=== PATIENT | male | born 1960 | race African-American/Black ===

== ENCOUNTER 2017-02-01 22:21 | Inpatient (IN) | payer OTHER ==
[~2017-02-01] VITALS: Ht 182.9 cm; Wt 74.2 kg
--- NOTE | 2017-02-01 22:28 | NUR ---
PT BIB AMBULANCE AND PLACED IN BED. PT WITH C/O SOB X 3 DAYS, WORSENING TODAY WITH EXERTION. NO SOB OR DISTRESS NOTED AT THIS TIME. IV HEPLOCK TO LAC PRIOR TO ARRIVAL NOTED. PT STATED HAVING N/V X 4 DAYS WITH GENERALIZED WEAKNESS.
[2017-02-01 23:05] LABS: BASOPHIL % 0.6 % (0-2)
[2017-02-01 23:07] LABS: PLATELET COUNT 101 x10^3mcL (130-400); RED CELL DISTRIBUTION WIDTH 15.5 % (11.5-14.5)
[2017-02-01 23:08] LABS: CARBON DIOXIDE 25.2 mmol/L (21-32); CREATININE SERUM 1.8 mg/dL (0.7-1.3); POTASSIUM SERUM 5.2 mmol/L (3.5-5.1)
[2017-02-01 23:14] LABS: ALBUMIN 3.8 g/dL (3.4-5.0); BILIRUBIN TOTAL 3.1 mg/dL (0.20-1.00); TOTAL PROTEIN, SERUM 7.8 g/dL (6.4-8.2)
--- NOTE | 2017-02-01 23:38 | NUR ---
PT SITTING UP IN BED WATCHING TV WITH NO SIGNS OF DISTRESS NOTED AT THIS TIME.
[2017-02-02] VITALS (8 sets, daily range): BP systolic 94–120; BP diastolic 65–88; Ht 182.9 cm; Wt 74.2 kg
[2017-02-02] MEDS ORDERED: APAP500 MG PO (00:28)
[2017-02-02] MEDS ORDERED: ASPIR 8181 MG PO (00:30)
[2017-02-02] MEDS ORDERED: PROAIR RES117 MCG/Ac IH (00:30)
[2017-02-02] MEDS ORDERED: ALLOPURINOL100 MG PO (00:30)
[2017-02-02] MEDS ORDERED: CARVEDILOL3.125 M1 PO (00:31)
[2017-02-02] MEDS ORDERED: FUROSEMIDE40 MG PO (00:31)
[2017-02-02] MEDS ORDERED: DIGOXIN0.125 M1 PO (00:31)
[2017-02-02] MEDS ORDERED: ZES10 PO (00:32)
[2017-02-02] MEDS ORDERED: ISORDIL TITRADOS5 M1 PO (00:32)
[2017-02-02] MEDS ORDERED: ALDACTONE25 MG PO (00:33)
[2017-02-02] MEDS ORDERED: NITROSTAT0.4 MG SL (00:33)
[2017-02-02] MEDS ORDERED: TYLENOL WITH CO1 TA2 PO (00:34)
[2017-02-02] MEDS ORDERED: FLOMAX0.4 MG PO (00:34)
--- NOTE | 2017-02-02 01:56 | NUR ---
REPORT GIVEN TO FLOOR RN.
--- NOTE | 2017-02-02 03:03 | NUR ---
PT RECEIVED FROM ED VIA [facility], ASSISTED BY NURSE. PT AMBULATED TO BED ON OWN, STATED SOB W/ EXERTION. RECEIVING 2L NC, NO C/O CP AT THIS TIME. PT STATED HAS DIZZINESS UPON EXERTION, C/O THROBBING ABD PAIN 8/10, WILL MEDICATE PER DOCTORS ORDER. IV SITE TO LAC PATENT AND INTACT, NO C/O PAIN AT SITE. PT ORIENTED TO ROOM AND CALL LIGHT, BED IN LOWEST POSITION, CALL LIGHT WITHIN REACH, WILL CONTINUE TO MONITOR.
--- NOTE | 2017-02-02 04:30 | NUR ---
PT RECEIVED FLU SHOT IM AND NORCO PO. RESTING IN BED, WILL CONTINUE TO MONITOR. CALL LIGHT IN REACH, BED IN LOWEST POSITION.
--- NOTE | 2017-02-02 05:15 | NUR ---
PT RESTING IN BED, ADJUSTING WELL TO HOSPITAL ROOM. NO C/O CP OR PAIN AT THIS TIME, RESP EVEN AND INLABORED, NO C/O SOB. PT ON 2L NC O2 SAT 98%. CALL LIGHT WITHIN REACH, BED IN LOWEST POSITION, WILL CONTINUE TO MONITOR.
[2017-02-02 06:31] LABS: BASOPHIL % 0.6 % (0-2)
[2017-02-02 06:49] LABS: PLATELET COUNT 95 x10^3mcL (130-400)
[2017-02-02 07:09] LABS: ALBUMIN 3.6 g/dL (3.4-5.0); BILIRUBIN TOTAL 3.91 mg/dL (0.20-1.00); CALCIUM 8.9 mg/dL (8.5-10.1); CARBON DIOXIDE 23.2 mmol/L (21-32); CREATININE SERUM 1.8 mg/dL (0.7-1.3); POTASSIUM SERUM 5.2 mmol/L (3.5-5.1); TOTAL PROTEIN, SERUM 7.2 g/dL (6.4-8.2)
--- NOTE | 2017-02-02 07:55 | NUR ---
PT SEEN REST ON BED, NO COMPLAIN OF SOB AND CP AT THIS TIME. PT BREATHING ON RA, EVEN,UNLABORED. IV SITE PATENT, INTACT. SALINE LOCK AT THIS TIME.
--- NOTE | 2017-02-02 12:39 | NUR ---
GOT CALL FROM [employer], PT'S HR WENT UP 160-170 BPM. CHECK PT, PT IS SITTING AT BED SIDE, EATING, STILL COMPLAIN OF BREATHING PROBLEM, WITH O2 STAT AT 98% ON RA/ 2L VIA NC. PT'S BP 106/79, HR 85 BPM. PT STATED HE IS UNABLE TO DEEP BREATHE. NO REPORTED CHEST PAIN AT THIS TIME. PT STILL REFUSED TO TAKE DIGOXIN PER ORDER. TRIED TO CHANGE PT'S TELE MONITOR LEAD, PT INSISTED TO CHANGE IT AFTER LUNCH.
--- NOTE | 2017-02-02 14:05 | NUR ---
LEADS OFF, CHECKED ON PT. RADIO STAFF IS DOING ECHO, PT REQUEST TO PUT LEADS ON AFTER ECHO.
--- NOTE | 2017-02-02 17:38 | NUR ---
MADE DR. ORLANDO AWARE THAT PT COMPLAIN OF BREATHING PROBLEM, PT STATED BREATHING TREATMENT BARELY HELP HIM. PT WANTED TO SEE HIS DORCTOR. PER DR. ORLANDO'S TELEPHONE ORDER: CHECK PT'S DIG LEVEL AND REPEAT BNP.
--- NOTE | 2017-02-02 18:35 | NUR ---
DR. WALKER TALKED TO PT. KAYEXALATE IS ORDERED. PT BREATHING ON RA, EVEN, UNLABORED. PT IV SITE SALINE LOCK AT THIS TIME.
--- NOTE | 2017-02-02 19:30 | NUR ---
PT SITTING UP IN BED WATCHING TV. TELE #27 SHOWING SR W/ INVERTED T WAVES HR 82 EXPLAINED TO PT DIETARY CHANGES; PT UNDERSTANDS NPO AFTER MIDNIGHT TO ALLOW FOR US ABD COMPLETE. RESP EVEN AND UNLABORD, NO C/O SOB OR CP AT THIS TIME. 2L NC, PT GIVEN KAYEXALATE TO REMOVE k+, TOLERATED WELL. IV TO LAC REMAINS PATENT AND FREE OF REDNESS, SWELLING OR PAIN. CALL LIGHT WITHIN REACH, BED IN LOWEST POSITION, WILL CONTINUE TO MONITOR.
[2017-02-02 19:53] LABS: UA SPECIFIC GRAVITY 1.015 (1.005-1.035); microscopic required? YES; urine erythrocyte TRACE (NEGATIVE)
[2017-02-02 20:00] LABS: AMPHETAMINE QUAL UR NONE DETECTED (NEG <=1000)
--- NOTE | 2017-02-03 05:05 | NUR ---
PT SLEEPING IN BED, RESP EVEN AND UNLABORED. NO S/S OF RESP DISTRESS NOTED, RECIEVING OXYGEN 2L NC, IV SITE REMAINS INTACT, SALINE LOCKED. PT RESTING WELL THROUGH THE NIGHT WITH MINIMAL INTERRUPTIONS. CALL LIGHT WITHIN REACH, BED IN LOWEST POSITION, WILL CONTINUE TO MONITOR.
[2017-02-03 06:10] VITALS: BP 121/79
[2017-02-03 06:17] LABS: BASOPHIL % 0.5 % (0-2)
[2017-02-03 06:31] LABS: CALCIUM 9.1 mg/dL (8.5-10.1); CARBON DIOXIDE 25.5 mmol/L (21-32); CREATININE SERUM 1.9 mg/dL (0.7-1.3); POTASSIUM SERUM 4.6 mmol/L (3.5-5.1)
[2017-02-03 07:04] LABS: PLATELET COUNT 91 x10^3mcL (130-400); RED CELL DISTRIBUTION WIDTH 15.6 % (11.5-14.5)
--- NOTE | 2017-02-03 07:10 | NUR ---
PT SEEN AWAKE, SITTING AT THE BED SIDE. PT BREATHING ON RA, EVEN, UNLABORED. PT NO COMPLAIN OF PAIN AND SOB AT THIS TIME. PT PULLED THE IV OUT HIMSELF. CHECKED THE REMOVED IV PORT TIP INTACT. EARLY HEAD START DIRECTOR NURSE AWARE AND TRYING TO REINSERT NEW IV.
[2017-02-03 09:39] VITALS: BP 113/74
--- NOTE | 2017-02-03 10:30 | NUR ---
PAGED AND OBTAINED DR. WALKER TELEPHONE ORDER: ADD ENSURE TID TO PT CARDIAC DIET.
[2017-02-03 13:22] VITALS: BP 102/71
--- NOTE | 2017-02-03 17:50 | NUR ---
PT SITTING AT BED SIDE. PT NO COMPLAIN OF PAIN AND SOB AT THIS TIME. PT BREATHING ON RA, EVEN, UNLABORED. PT'S URINE COLOR FROM YESTERDAY EMMETT TO YELLOW TODAY. IV SITE PATENT, INTACT. IVF INFUSING WELL.
--- NOTE | 2017-02-03 17:59 | NUR ---
DR. ORELLANA CAME TO TALK TO PT AT BED SIDE.
[2017-02-03 18:00] VITALS: BP 100/71
--- NOTE | 2017-02-03 19:40 | NUR ---
PT SITTING UP IN BED WATCHING TV. IV TO LTFA, PATENT SALINE LOCK. NO REDNESS, SWELLING, OR PAIN AT SITE. NO SOB OR CP AT THIS TIME, ON RA O2 SAT REMAINS 97-98%. RESP EVEN AND UNLABORED, SYMMETRICAL RISE AND FALL OF CHEST. TELE #27 SR W/ DEPRESSED ST & TWAVE. PATIENT AWARE OF NPO STATUS AFTER MIDNIGHT FOR STRESS TEST. COMFORT AND SAFETY MEASURES PROVIDED, CALL LIGHT WITHIN REACH, BED IN LOWEST POSITION, WILL CONTINUE TO MONITOR.
[2017-02-03 21:12] VITALS: BP 112/82
[2017-02-03 23:45] VITALS: BP 105/73
--- NOTE | 2017-02-03 23:45 | NUR ---
CITY CLERK CALLED TO ALERT THAT PT WAS DEMONSTRATING V. TACH ON MONITOR. CHARGE NURSE NOTIFIED, PT HAD APPOINTMENT WITH [employer] IN AM FOR STRESS TEST, TOOK VS PROMPTLY AFTER, BP 105/79, HR 88, ASYMPTOMATIC. WILL CONTINUE TO MONITOR.
--- NOTE | 2017-02-04 03:00 | NUR ---
PATIENT'S PLAN OF CARE WAS DISCUSSED AND REVIEWED WITH MICROBIOLOGY PROFESSOR:TANESHA HERRERA.
--- NOTE | 2017-02-04 03:00 | NUR ---
I HAVE REVIEWED THE DATA COLLECTION BY GRIPPER INSTALLER (NAME):TANESHA HERRERA. ENTERED ON (DATE/TIME): I CONCUR WITH THE DATA AND ANY EXCEPTIONS OR COMMENTS ARE LISTED BELOW:
[2017-02-04 03:15] VITALS: BP 112/70
--- NOTE | 2017-02-04 05:14 | NUR ---
PT AWAKE IN BED OCCUPIED WITH ELECTRONIC DEVICE. PT STATES PAIN IS UNDER CONTROL AT THIS TIME. NO C/O CP/SOB AT THIS TIME. PT UNDERSTANDS HE IS NPPO UNTIL STRESS TEST PROCEDURE. IV SITE REMAINS PATENT TO LTFA, SALINE LOCKED. PT ANTICIPATING DISCHARGE SOON. MEDICATED X3 DURING SHIFT, PERSISTENT ABD PAIN REPORTED 11/29. NORCO X1, MORPHINE X2. PT APPEARS TO HAVE VERY HIGH TOLERANCE TO NARCOTICS, WILL CONTINUE TO MONITOR CLOSELY. RESP REMAINED EVEN AND UNLABORED. CALL LIGHT WITHIN REACH, BED IN LOWEST POSITION, WILL CONTINUE TO MONITOR.
[2017-02-04 05:22] VITALS: BP 114/81
[2017-02-04 06:57] LABS: CALCIUM 8.7 mg/dL (8.5-10.1); CARBON DIOXIDE 27.9 mmol/L (21-32); CREATININE SERUM 1.8 mg/dL (0.7-1.3); POTASSIUM SERUM 3.7 mmol/L (3.5-5.1)
--- NOTE | 2017-02-04 07:14 | NUR ---
VERBALIZED UNDERSTANDING NPO FOR STRESS TEST.
--- NOTE | 2017-02-04 07:22 | NUR ---
PATIENT ALERT AND ORIENTED X 4. TELE # 27 DENIES CHEST PAIN. NO EDEMA NOTED. SOB EXERTION NOTED WHILE TALKING. ABDOMEN SOFT, BOWEL SOUNDS ACTIVE. REPORTS RIGHT FLANK PAIN DUE TO KIDNEY STONES BUT RELIEVED WITH MORPHINE. ABLE TO MOVE ALL EXTREMITIES. SKIN INTACT. IV HEP LOCK LFA 24G WNL. VERBALIZED UNDERSTANDING AND NPO FOR STRESS TEST. CALL LIGHT WITHIN REACH.
[2017-02-04 07:50] LABS: BASOPHIL % 0.4 % (0-2)
[2017-02-04 07:55] LABS: PLATELET COUNT 87 x10^3mcL (130-400)
--- NOTE | 2017-02-04 08:02 | NUR ---
RECEIVED CALL FROM [employer], STRESS TEST IS NOT UNTIL THIS AFTERNOON, OKAY TO FEED BREAKFAST, WILL MAKE NPO AFTER DONE. OKAY TO GIVE SCHEDULED CARDIAC MEDICATIONS.
--- NOTE | 2017-02-04 08:11 | NUR ---
MEDICATED WITH NORCO FOR 8/10 RIGHT FLANK PAIN.
--- NOTE | 2017-02-04 08:35 | NUR ---
AMBULATED TO BATHROOM, NO SOB NOTED.
[2017-02-04 09:10] VITALS: BP 113/67
--- NOTE | 2017-02-04 09:18 | NUR ---
VERBALIZED UNDERSTANDING NPO.
--- NOTE | 2017-02-04 10:25 | NUR ---
PATIENT AT [facility], CALM AND SOB. AMBULATED TO RESTROOM, NO SOB UPON EXERTION.
--- NOTE | 2017-02-04 11:42 | NUR ---
SITTING BEDSIDE, NO DISTRESS NOTED.
--- NOTE | 2017-02-04 12:24 | NUR ---
DR NGUYỄN IN TO SEE PATIENT. PLAN IS TO DC HOME AFTER STRESS TEST IF NEGATIVE.
--- NOTE | 2017-02-04 12:25 | NUR ---
OFF FLOOR VIA WC FOR STRESS TEST.
[2017-02-04 12:29] VITALS: BP 113/67
--- NOTE | 2017-02-04 13:48 | NUR ---
PATIENT DECLINED CARDIOLITE STRESS/LEXISCAN -AFRAID OF HAVING A BAD REACTION
--- NOTE | 2017-02-04 13:53 | NUR ---
BACK FROM STRESS TEST. REFUSED STRESS TEST. REPORTS HE WAS SCARED TO HAVE TEST DUE TO SIDE EFFECTS. WHEN IT WAS POINTED OUT THAT HE HAD HAD THE SAME TEST A YEAR AGO, STATED HE DIDN'T KNOW ALL OF THE SIDE EFFECTS. WANTS A BREATHING TREATMENT AND A PRESCRIPTION FOR PAIN MEDICATION BEFORE DISCHARGE.
[2017-02-04 14:10] VITALS: BP 103/70
--- NOTE | 2017-02-04 14:11 | NUR ---
REPORTING THAT DR TOLD HIM HE WAS TO HAVE ANOTHER DOSE OF LASIX PRIOR TO DC. PAGED DR ORELLANA.
--- NOTE | 2017-02-04 14:15 | NUR ---
DR ORELLANA REPORTS HE DID NOT TELL PATIENT THAT HE NEEDED LASIX PRIOR TO DISCHARGE. INSTRUCTED RN TO CALL ATTENDING.
--- NOTE | 2017-02-04 14:16 | NUR ---
PAGED DR NGUYỄN.
--- NOTE | 2017-02-04 14:45 | NUR ---
SPOKE WITH DR NGUYỄN, HE STATED WANTED PATIENT TO RECEIVE LASIX LAST NIGHT AND THIS MORNING, NO NEW ORDERS. [place] HOME.
--- NOTE | 2017-02-04 15:25 | NUR ---
WANTS TO TAKE A NAP AND LEAVE AT 1800. MEDICATED WITH MORPHINE FOR 8/10 PAIN.
[2017-02-04 15:28] VITALS: BP 145/75
--- NOTE | 2017-02-04 15:33 | NUR ---
patient sitting, alert and talkative. patient reports pain 8/10. administered medication. will reassess in 30 minutes.
--- NOTE | 2017-02-04 15:52 | NUR ---
PATIENT REPORTS PAIN LEVEL 2/10 AND WILL BE TAKING A NAP.
--- NOTE | 2017-02-04 16:19 | NUR ---
WATCHING TV, LISTENING TO MUSIC, NO DISTRESS NOTED.
--- NOTE | 2017-02-04 16:36 | NUR ---
reviewed discharge instructions, patient verbalized understanding. patient received rx script in hand. obtained signatures. D/C'd IV from LFA, IV intact.
--- NOTE | 2017-02-04 16:46 | NUR ---
NOW SAYING HIS RIDE HAS FALLEN THROUGH AND HE IS WORKING ON ANOTHER RIDE.
--- NOTE | 2017-02-04 17:26 | NUR ---
UP IN CHAIR, ON PHONE, NO DISTRESS NOTED.
--- NOTE | 2017-02-04 17:43 | NUR ---
OFF FLOOR VIA WHEELCHAIR WITH [employer] APPRAISER. ALL BELONGINGS WITH PATIENT.
== END 2017-02-04 17:40 | disposition home or self-care (01) | DRG 194 ==
LOC: ED 22:21 → DU 02-02 00:32
PROVIDERS: Emergency Medicine; Internal Medicine; ADMIT Internal Medicine Pulmonary Disease
DX: I13.0 Hypertensive heart and chronic kidney disease with heart failure and stage 1 through stage 4 chronic kidney disease, or unspecified chronic kidney disease (principal); Z86.74 Personal history of sudden cardiac arrest; I50.43 Acute on chronic combined systolic (congestive) and diastolic (congestive) heart failure; N18.9 Chronic kidney disease, unspecified; I25.5 Ischemic cardiomyopathy; E87.5 Hyperkalemia; N40.0 Benign prostatic hyperplasia without lower urinary tract symptoms; F12.10 Cannabis abuse, uncomplicated; Z86.711 Personal history of pulmonary embolism; J44.9 Chronic obstructive pulmonary disease, unspecified
CPT/HCPCS: 83880; 90658; J1940; J2270; J2785; J7030; J7613; Q0092

== ENCOUNTER 2017-08-30 12:50 | Inpatient (IN) | payer OTHER ==
[2017-08-30] VITALS (8 sets, daily range): BP systolic 83–130; BP diastolic 44–83
[~2017-08-30] VITALS: Ht 182.9 cm; Wt 71.4 kg
[~2017-08-30 12:50] MED LIST: ALDACTONE25 MG PO; ALLOPURINOL100 MG PO; APAP500 MG PO; ASPIR 8181 MG PO; CARVEDILOL3.125 M1 PO; DIGOXIN0.125 M1 PO; FLOMAX0.4 MG PO; FUROSEMIDE40 MG PO; ISORDIL TITRADOS5 M1 PO; NITROSTAT0.4 MG SL; PROAIR RES117 MCG/Ac IH; TYLENOL WITH CO1 TA2 PO; ZES10 PO
[2017-08-30 14:32] LABS: BASOPHIL % 0.7 % (0-2)
[2017-08-30 14:34] LABS: PLATELET COUNT 108 x10^3mcL (130-400); RED CELL DISTRIBUTION WIDTH 17.9 % (11.5-14.5)
[2017-08-30 14:43] LABS: CALCIUM 9.6 mg/dL (8.5-10.1); CARBON DIOXIDE 23.9 mmol/L (21-32); CREATININE SERUM 2.3 mg/dL (0.7-1.3); TOTAL PROTEIN, SERUM 8.1 g/dL (6.4-8.2)
[2017-08-30 14:46] LABS: POTASSIUM SERUM 5.6 mmol/L (3.5-5.1)
[2017-08-30] MEDS ORDERED: ALDACTONE50 MG PO (15:10)
[2017-08-30] MEDS ORDERED: AMIODARONE HCL200 MG PO (15:10)
[2017-08-30] MEDS ORDERED: ALLOPURINOL100 MG PO (15:10)
[2017-08-30] MEDS ORDERED: DIFLUCAN10 MG/ML PO (15:11)
[2017-08-30] MEDS ORDERED: ELIQUIS2.5 MG PO (15:11)
[2017-08-30 17:03] LABS: MAGNESIUM 2.4 mg/dL (1.8-2.4); PHOSPHOROUS 5.2 mg/dL (2.5-4.9)
[2017-08-30 17:04] LABS: CHOLESTEROL/HDL RATIO 2.4
[2017-08-31] VITALS (16 sets, daily range): BP systolic 11–118; BP diastolic 22–72
[2017-08-31 05:28] LABS: BASOPHIL % 0.8 % (0-2)
[2017-08-31 05:37] LABS: CALCIUM 8.5 mg/dL (8.5-10.1); CARBON DIOXIDE 22.2 mmol/L (21-32); CREATININE SERUM 2.3 mg/dL (0.7-1.3); MAGNESIUM 2.4 mg/dL (1.8-2.4); PHOSPHOROUS 4.9 mg/dL (2.5-4.9); POTASSIUM SERUM 5.3 mmol/L (3.5-5.1)
[2017-08-31 05:45] LABS: PLATELET COUNT 91 x10^3mcL (130-400); RED CELL DISTRIBUTION WIDTH 17.1 % (11.5-14.5)
[2017-08-31 17:01] LABS: UA SPECIFIC GRAVITY 1.025 (1.005-1.035); microscopic required? YES; urine erythrocyte 3+ (NEGATIVE)
[2017-08-31 17:15] LABS: AMPHETAMINE QUAL UR NONE DETECTED (NEG <=1000)
[2017-09-01] VITALS (17 sets, daily range): BP systolic 65–110; BP diastolic 54–75
[2017-09-01 05:08] LABS: BASOPHIL % 0.5 % (0-2)
[2017-09-01 05:10] LABS: CALCIUM 8.5 mg/dL (8.5-10.1); CARBON DIOXIDE 23.4 mmol/L (21-32); CREATININE SERUM 1.9 mg/dL (0.7-1.3); MAGNESIUM 2.4 mg/dL (1.8-2.4); PHOSPHOROUS 3.5 mg/dL (2.5-4.9); POTASSIUM SERUM 4.1 mmol/L (3.5-5.1)
[2017-09-01 05:13] LABS: PLATELET COUNT 87 x10^3mcL (130-400); RED CELL DISTRIBUTION WIDTH 17.9 % (11.5-14.5)
[2017-09-01 13:07] LABS: BILIRUBIN DIRECT 0.93 mg/dL (0.0-0.2); BILIRUBIN TOTAL 3.5 mg/dL (0.20-1.00)
[2017-09-01 13:08] LABS: ALBUMIN 2.5 g/dL (3.4-5.0); TOTAL PROTEIN, SERUM 5.6 g/dL (6.4-8.2)
[2017-09-02] VITALS (18 sets, daily range): BP systolic 87–128; BP diastolic 47–93
[2017-09-02 05:11] LABS: BASOPHIL % 0.3 % (0-2)
[2017-09-02 05:13] LABS: PLATELET COUNT 93 x10^3mcL (130-400); RED CELL DISTRIBUTION WIDTH 17.4 % (11.5-14.5)
[2017-09-02 05:26] LABS: CALCIUM 8.4 mg/dL (8.5-10.1); CARBON DIOXIDE 21.7 mmol/L (21-32); CREATININE SERUM 1.4 mg/dL (0.7-1.3); MAGNESIUM 2.4 mg/dL (1.8-2.4); PHOSPHOROUS 2.9 mg/dL (2.5-4.9); POTASSIUM SERUM 4.2 mmol/L (3.5-5.1)
[2017-09-03] VITALS (18 sets, daily range): BP systolic 82–114; BP diastolic 43–73
[2017-09-03 05:36] LABS: CALCIUM 8.4 mg/dL (8.5-10.1); CARBON DIOXIDE 23.6 mmol/L (21-32); CREATININE SERUM 1.4 mg/dL (0.7-1.3)
[2017-09-03 05:39] LABS: BASOPHIL % 0.7 % (0-2); PLATELET COUNT 88 x10^3mcL (130-400); RED CELL DISTRIBUTION WIDTH 17.3 % (11.5-14.5)
[2017-09-04] VITALS (17 sets, daily range): BP systolic 96–122; BP diastolic 61–82
[2017-09-04 05:16] LABS: BASOPHIL % 0.9 % (0-2)
[2017-09-04 05:23] LABS: PLATELET COUNT 102 x10^3mcL (130-400); RED CELL DISTRIBUTION WIDTH 17.1 % (11.5-14.5)
[2017-09-04 05:30] LABS: CALCIUM 8.6 mg/dL (8.5-10.1); CARBON DIOXIDE 26.7 mmol/L (21-32); CREATININE SERUM 1.6 mg/dL (0.7-1.3); MAGNESIUM 2.2 mg/dL (1.8-2.4); PHOSPHOROUS 4.5 mg/dL (2.5-4.9)
[2017-09-05] VITALS (19 sets, daily range): BP systolic 86–136; BP diastolic 58–91
[2017-09-05 05:15] LABS: BASOPHIL % 0.6 % (0-2)
[2017-09-05 05:21] LABS: CALCIUM 8.7 mg/dL (8.5-10.1); CARBON DIOXIDE 26.8 mmol/L (21-32); CREATININE SERUM 1.5 mg/dL (0.7-1.3); MAGNESIUM 2.3 mg/dL (1.8-2.4); PHOSPHOROUS 3.9 mg/dL (2.5-4.9); POTASSIUM SERUM 4.6 mmol/L (3.5-5.1)
[2017-09-05 05:23] LABS: PLATELET COUNT 108 x10^3mcL (130-400); RED CELL DISTRIBUTION WIDTH 17.4 % (11.5-14.5)
[2017-09-06] VITALS (17 sets, daily range): BP systolic 77–127; BP diastolic 50–84
[2017-09-06 05:22] LABS: BASOPHIL % 2.1 % (0-2); PLATELET COUNT 105 x10^3mcL (130-400); RED CELL DISTRIBUTION WIDTH 17.6 % (11.5-14.5)
[2017-09-06 05:32] LABS: CALCIUM 8.7 mg/dL (8.5-10.1); CARBON DIOXIDE 24.1 mmol/L (21-32); CREATININE SERUM 1.7 mg/dL (0.7-1.3); POTASSIUM SERUM 5.1 mmol/L (3.5-5.1)
[2017-09-07] VITALS (20 sets, daily range): BP systolic 85–103; BP diastolic 52–74
[2017-09-07 05:29] LABS: CALCIUM 8.6 mg/dL (8.5-10.1); CARBON DIOXIDE 24.8 mmol/L (21-32); CREATININE SERUM 2.1 mg/dL (0.7-1.3); POTASSIUM SERUM 4.8 mmol/L (3.5-5.1)
[2017-09-07 05:32] LABS: BASOPHIL % 0.5 % (0-2)
[2017-09-07 05:38] LABS: PLATELET COUNT 98 x10^3mcL (130-400); RED CELL DISTRIBUTION WIDTH 17.4 % (11.5-14.5)
[2017-09-08] VITALS (17 sets, daily range): BP systolic 90–108; BP diastolic 57–77; Ht 182.9 cm; Wt 71.4 kg
[2017-09-08 05:42] LABS: BASOPHIL % 1.4 % (0-2)
[2017-09-08 05:43] LABS: PLATELET COUNT 120 x10^3mcL (130-400); RED CELL DISTRIBUTION WIDTH 17.3 % (11.5-14.5)
[2017-09-08 06:38] LABS: CALCIUM 8.7 mg/dL (8.5-10.1); CARBON DIOXIDE 22.1 mmol/L (21-32); CREATININE SERUM 1.5 mg/dL (0.7-1.3); MAGNESIUM 2.5 mg/dL (1.8-2.4); POTASSIUM SERUM 4.6 mmol/L (3.5-5.1)
[2017-09-09] VITALS (18 sets, daily range): BP systolic 99–113; BP diastolic 63–83
[2017-09-09 05:28] LABS: BASOPHIL % 0.4 % (0-2); PLATELET COUNT 143 x10^3mcL (130-400)
[2017-09-09 05:42] LABS: CARBON DIOXIDE 23.4 mmol/L (21-32); CREATININE SERUM 1.5 mg/dL (0.7-1.3); MAGNESIUM 2.4 mg/dL (1.8-2.4); POTASSIUM SERUM 4.3 mmol/L (3.5-5.1)
[2017-09-09 05:54] LABS: RED CELL DISTRIBUTION WIDTH 17.1 % (11.5-14.5)
[2017-09-10] VITALS (13 sets, daily range): BP systolic 99–120; BP diastolic 69–91
[2017-09-10 05:36] LABS: CARBON DIOXIDE 25.8 mmol/L (21-32); CREATININE SERUM 1.4 mg/dL (0.7-1.3); POTASSIUM SERUM 3.8 mmol/L (3.5-5.1)
[2017-09-10 05:40] LABS: BASOPHIL % 0.4 % (0-2); PLATELET COUNT 168 x10^3mcL (130-400); RED CELL DISTRIBUTION WIDTH 16.8 % (11.5-14.5)
== END 2017-09-10 20:11 | DRG 181 ==
LOC: ED 12:50 → IC 16:22
PROVIDERS: Emergency Medicine; Family Medicine; Family Medicine Sports Medicine; Internal Medicine Gastroenterology
PROC: 0BH17EZ Insertion of Endotracheal Airway into Trachea, Via Natural or Artificial Opening (ICD-10-PCS; principal; 2017-08-30)
PROC: 5A1945Z Respiratory Ventilation, 24-96 Consecutive Hours (ICD-10-PCS; 2017-08-30)
PROC: 04HY32Z Insertion of Monitoring Device into Lower Artery, Percutaneous Approach (ICD-10-PCS; 2017-08-30)
PROC: 02HV33Z Insertion of Infusion Device into Superior Vena Cava, Percutaneous Approach (ICD-10-PCS; 2017-08-30)
PROC: B548ZZA Ultrasonography of Superior Vena Cava, Guidance (ICD-10-PCS; 2017-08-30)
PROC: 4A133B1 Monitoring of Arterial Pressure, Peripheral, Percutaneous Approach (ICD-10-PCS; 2017-08-30)
PROC: 4A133J1 Monitoring of Arterial Pulse, Peripheral, Percutaneous Approach (ICD-10-PCS; 2017-08-30)
PROC: 0BH17EZ Insertion of Endotracheal Airway into Trachea, Via Natural or Artificial Opening (ICD-10-PCS; 2017-09-02)
PROC: 5A1955Z Respiratory Ventilation, Greater than 96 Consecutive Hours (ICD-10-PCS; 2017-09-02)
PROC: 0BP1XDZ Removal of Intraluminal Device from Trachea, External Approach (ICD-10-PCS; 2017-09-02)
DX: I13.0 Hypertensive heart and chronic kidney disease with heart failure and stage 1 through stage 4 chronic kidney disease, or unspecified chronic kidney disease (principal); J96.01 Acute respiratory failure with hypoxia; N17.0 Acute kidney failure with tubular necrosis; R57.0 Cardiogenic shock; J69.0 Pneumonitis due to inhalation of food and vomit; I42.0 Dilated cardiomyopathy; D69.6 Thrombocytopenia, unspecified; I50.43 Acute on chronic combined systolic (congestive) and diastolic (congestive) heart failure; E83.39 Other disorders of phosphorus metabolism; K80.00 Calculus of gallbladder with acute cholecystitis without obstruction; J44.1 Chronic obstructive pulmonary disease with (acute) exacerbation; E87.1 Hypo-osmolality and hyponatremia; E87.5 Hyperkalemia; N18.9 Chronic kidney disease, unspecified; I25.10 Atherosclerotic heart disease of native coronary artery without angina pectoris; N39.0 Urinary tract infection, site not specified; D53.9 Nutritional anemia, unspecified; I42.6 Alcoholic cardiomyopathy; E66.01 Morbid (severe) obesity due to excess calories; Z78.1 Physical restraint status; Z91.14 Patient's other noncompliance with medication regimen; Z68.21 Body mass index [BMI] 21.0-21.9, adult; Z95.810 Presence of automatic (implantable) cardiac defibrillator
CPT/HCPCS: 36556; 36600; 82962; 83880; A4628; C9113; J0696; J1100; J1265; J1642; J1885; J1940; J2060; J2250; J2270; J2405; J2543; J3010; J7030; J7040; J7042; J7050; J7613; J7620; J7633; Q0092